=== PATIENT | female | born 1995 | race Caucasian/White ===

== ENCOUNTER 2018-05-26 08:40 | Inpatient (IN) ==
[2018-05-30] MEDS ORDERED: ACETAMINOPHEN 500 MG TABLET PO PRN ×2 (03:21→10:54)
[2018-05-30] MEDS ORDERED: CARBOPROST 250 MCG/ML INJECTION IM PRN (03:21)
[2018-05-30] MEDS ORDERED: LIDOCAINE 1% (10mg/ml) 2mL INJ PF SDV ID PRN (03:21)
[2018-05-30] MEDS ORDERED: METHYLERGONOVINE 0.2 MG/ML INJECTION IM PRN (03:21)
[2018-05-30] MEDS ORDERED: CALCIUM CARBONATE Chewable 500mg TABLET PO PRN ×2 (03:21→10:54)
[2018-05-30] MEDS ORDERED: MAG-AL + SIM ORAL LIQUID 30ml PO PRN ×2 (03:21→10:54)
[2018-05-30] MEDS: LR 1,000 ML IV PRN ×3 (03:35→07:35)
[2018-05-30] MEDS ORDERED: OXYTOCIN DRIP 30 UNIT/500 ML ML IV PRN (04:09)
[2018-05-30] MEDS ORDERED: D5LR 1,000 ML IV PRN (04:09)
--- NOTE | 2018-05-30 06:31 | Anesthesia Preoperative Report ---
Anesthesia Epidural/Spinal Rec - Date and Time Date: 05/30/18 Procedure: Labor Epidural Plan: Epidural - Vital Signs /Para: P:0 - Medictaions & Allergies Inpatient Medications: Current Medications Acetaminophen (Tylenol) 500 - 1,000 mg PO Q4H PRN PRN Reason: Pain Al Hydroxide/Mg Hydroxide (Maalox Plus) 30 ml PO Q3H PRN PRN Reason: Indigestion Calcium Carbonate (Tums) 500 - 1,000 mg PO Q2H PRN PRN Reason: Indigestion Carboprost Tromethamine (Hemabate) 250 mcg IM O PRN PRN Reason: .Downtime Lactated Ringer's (Lactated Ringers) 1,000 mls @ 999 mls/hr IV .Q1H1M PRN Last Admin: 05/30/18 03:35 Dose: 999 mls/hr Dextrose/Lactated Ringer's (Dextrose 5%-Lactated Ringers) 1,000 mls @ 125 mls/ hr IV .Q8H PRN PRN Reason: Labor Last Admin: 05/30/18 04:10 Dose: 125 mls/hr Oxytocin (Pitocin Drip) 30 unit in 500 mls @ 2 mls/hr IV .Q24H PRN; Protocol PRN Reason: Induction/Augmentation Last Admin: 05/30/18 04:11 Dose: 2 mls/hr Lidocaine HCl (Xylocaine-Mpf 1% Vial) 0.2 mg ID O PRN PRN Reason: IV Start Methylergonovine Maleate (Methergine) 0.2 mg IM O PRN Misoprostol (Cytotec) 800 mcg IN ONCE PRN Allergies/Adverse Reactions: Allergies Allergy/AdvReac Type Severity Reaction Status Date / Time No Known Allergies Allergy Verified 04/23/18 13:54 - Home Medications Home Medications: Home Medications Medication Instructions Recorded Confirmed Type Docusate Sodium [Colace] 1 cap PO BID 04/23/18 04/23/18 History Pnv No.103/Folic/Om3s/Fish Oil 2 each PO DAILY 04/23/18 04/23/18 History [ Gummies] - Medical History Respiratory: DENIES: Asthma Cardiovascular: Reports: Other DENIES: Hypertension Gastrointestional: DENIES: Gastroesophageal Reflux Disease Other History: Reports: Now - Surgical History Cardiac Surgeries/Treatments: Reports: Other (pilonidal cyst) Reproductive Surgery/Treatment: Reports: Other (Pylonoidal Cyst) Anesthesia Reactions: None Hx Family Anesthesia Reaction: No History of Motion Sickness: No - Social History Smoking Status: Never smoker Second Hand Exposure: No Substance Use Type: does not use - Pertinent Findings Lab Data: CBC and BMP 05/30/18 03:34 - Physical Exam Respiratory Exam: lungs clear, bilateral breath sounds equal Cardiovascular Exam: regular rate and rhythm - Airway Assessment Mallampati Score: II TMD: 3 Fingerbreadths Neck Extension: good Overall Assessment: may be difficult mask vent, may be difficult intubation - ASA ASA Score: 2 - Discussion Discussion: Discussed risks/options/alternatives of anesthesia and questions answered. Patient consents. Nursing pain assessment noted. Anesthesia Discussion: spouse Attestation Statement: Prior to the delivery of any anesthetic medication, I examined the patient, developed the plan, obtained the patient's consent and discussed the risk and benefits of the procedure with the patient/guardian.
[2018-05-30] MEDS ORDERED: ONDANSETRON 4 MG/2 ML INJECTION IVP PRN ×2 (06:32→06:34)
[2018-05-30] MEDS ORDERED: NALOXONE 0.4 MG/ML INJECTION IVP PRN ×3 (06:32→10:54)
[2018-05-30] MEDS ORDERED: DiphenhydrAMINE 50 MG/ML INJECTION IVP PRN ×2 (06:32→06:34)
[2018-05-30] MEDS ORDERED: ROPIVACAINE 1% 10MG/ML INJ 200 MG, SUFentanil 50 MCG in NS 100 ML EPI PRN ×2 (06:32→06:34)
[2018-05-30] MEDS ORDERED: HYDROCODONE/APAP 5mg/325mg TABLET PO PRN (10:54)
[2018-05-30] MEDS ORDERED: DiphenhydrAMINE 25 MG CAPSULE PO PRN (10:54)
[2018-05-30] MEDS ORDERED: HYDROCORTISONE 2.5% CREAM 30gm RECTALLY PRN (10:54)
[2018-05-30] MEDS ORDERED: SALINE FLUSH 10ml SYRINGE IV PRN (10:54)
[2018-05-30] MEDS ORDERED: OXYTOCIN DRIP 30 UNIT/500 ML ML IV SCH (11:00)
[2018-05-30 11:33] VITALS: BMI 28.2
[2018-05-30] MEDS: IBUPROFEN 800 MG TABLET PO PRN ×2 (11:36→19:36)
--- NOTE | 2018-05-30 13:23 | Labor and Delivery Note ---
DATE: 05/30/2018 Ms. Schmitz progressed very quickly in first stage of labor, going from 4 cm to complete over the course of a couple of hours. She began to push with excellent effort at the complete and +1 station. She pushed for about an hour and a half, delivering the head in the OA presentation. Baby was bulb suctioned on the perineum. With another push baby was delivered in total. Baby was then placed on mother's abdomen. After a little over 2 minutes the cord was doubly clamped and cut. This is a liveborn female with Apgars of 8/9/ 9. She weighed 8 pounds 0 ounces. After a few moments the placenta delivered spontaneously intact. It had a normal configuration and normal-appearing three- vessel cord. The patient had a second-degree midline laceration that was repaired in the usual fashion with 2-0 Vicryl. Total blood loss was approximately 400 cc. At the time of this dictation mother and baby are doing well. JEAN PAUL
--- NOTE | 2018-05-30 16:52 | Anesthesia Postoperative Note ---
- Date and Time Date: 05/30/18 Time: 16:50 - Status Patient Participated in Evaluation: Patient Participated in Person Vital Signs: Temperature 97.9 F 05/30/18 15:15 Pulse Oximetry 98 05/30/18 07:00 Respiratory Function: Airway Patent, Regular Respirations Cardiovascular Function: Regular Pulse Mental Status: Alert and Oriented Pain Intensity: 0 Hydration: Taking PO Fluids Complications During Recover: None Apparent Post Anesthesia Care Notes: ambulating without problems - Follow-Up Instructions Instructions: Per Surgeon
[2018-05-31] MEDS: IBUPROFEN 800 MG TABLET PO PRN ×2 (08:26→16:30)
[2018-05-31] MEDS ORDERED: DOCUSATE CALCIUM 240 MG CAPSULE PO SCH (09:00)
--- NOTE | 2018-05-31 10:05 | OB/GYN Progress Note ---
OB-PP Progress Note - General PPD1 Maternal Group B Strep: Negative Maternal Rh: positive Maternal Rubella Status: Immune - Subjective Date: 05/31/18 Lochia: Minimal Pain: controlled Voiding: voiding - Objective Vital Signs: Last Vital Signs Temp 97.6 F 05/30/18 23:15 Pulse 85 05/31/18 05:58 Resp 18 05/31/18 05:58 BP 125/86 05/31/18 05:58 Pulse Ox 98 05/31/18 05:58 General: alert and oriented Respiratory: non-labored Extremities: non-tender - Assessment Assessment: - Plan Plan: routine care, continue PNV Baby hasn't been eating well yet, so she isn't sure if she wants to go home today or tomorrow.
[2018-05-31 14:03] VITALS: RESP 16
[2018-06-01 04:01] VITALS: BP 126/72; PULSE 86; TEMP 97.8; O2SAT 100
--- NOTE | 2018-06-01 09:54 | OB/GYN Progress Note ---
OB-PP Progress Note - General PPD2 Maternal Group B Strep: Negative Maternal Rh: positive Maternal Rubella Status: Immune - Subjective Date: 06/01/18 Lochia: Minimal Pain: controlled Voiding: voiding - Objective Vital Signs: Last Vital Signs Temp 97.8 F 06/01/18 04:00 Pulse 86 06/01/18 04:00 Resp 16 06/01/18 04:00 BP 126/72 06/01/18 04:00 Pulse Ox 100 06/01/18 04:00 General: alert and oriented - Assessment Assessment: - Plan Plan: routine care, discharge home, continue PNV
== END 2018-06-01 10:36 | disposition home or self-care (01) | DRG 775 ==
LOC: EDSTATUS 08:40 → MC 05-30 02:54
PROVIDERS: ADMIT Obstetrics & Gynecology; ATTEND Obstetrics & Gynecology